=== PATIENT | female | born 1990 | race Two or more races ===

== ENCOUNTER 2024-05-08 14:19 | Emergency (ER) | payer MEDICAID, SELFPAY ==
[2024-05-08 14:58] VITALS: BP 135/85; PULSE 93; RESP 19; TEMP 37.5; O2SAT 97; BMI 36.8
--- NOTE | 2024-05-08 15:04 | XR_ITS ---
Examination: Pelvic ultrasound, transabdominal, complete Technique: Transabdominal ultrasound of the pelvis performed using grayscale imaging Date and time of exam: May 08, 2024 1542 hrs. Indications: Pelvic pain and vaginal bleeding beginning 6 days ago Findings: Uterus 7.9 cm endometrial stripe 1.0 cm No uterine mass or intrauterine gestation Right ovary 6.1 cm arterial flow 34 mm cyst Left ovary 3.9 cm arterial flow Impression: No uterine mass or intrauterine gestation Right ovarian simple cyst 3.3 x 3.4 x 3.2 cm
--- NOTE | 2024-05-08 15:05 | PD.EDRME ---
Rapid Medical Screening Exam RME Arrival date/time: 05/08/24 14:19 This is a 34-year-old female presents to the emergency department with complaints of intermittent vaginal bleeding worsening 1 week. She does report she is on Eliquis. I have greeted and performed a focused initial assessment of this patient. Initial appropriate labs ordered at this time. A comprehensive ED assessment and evaluation of the patient and analysis of all test and completion of medical decision making process will be conducted by additional ED provider. Chief Complaint: Urogenital-Female Time Seen by Provider: 05/08/24 14:33 Vital signs: Vital Signs Temperature 99.5 F 05/08/24 14:58 Pulse Rate 93 05/08/24 14:58 Respiratory Rate 19 05/08/24 14:58 Blood Pressure 135/85 H 05/08/24 14:58 Pulse Oximetry (%) 97 05/08/24 14:58 Oxygen Delivery Method Room Air 05/08/24 14:58
[2024-05-08 15:54] LABS: Basophils % (Auto) 0 % (0-2.5); Eosinophils % (Auto) 1 % (0-10); Hematocrit 42.2 % (36.0-46.0); Immature Granulocytes % (Auto) 0 % (0-0); Immature Granulocytes Auto 0.02 Thou/mm3 (0.00-0.00); Lymphocytes # (Auto) 1.8 Thou/mm3 (1.0-4.8); Lymphocytes % (Auto) 28 % (10-50); Mean Corpuscular HGB Conc 33.2 g/dl (31.0-37.0); Mean Corpuscular Hemoglobin 27.5 pg (25.0-35.0); Mean Corpuscular Volume 83 fL (80-100); Monocytes # (Auto) 0.6 Thou/mm3 (0.0-0.8); Monocytes % (Auto) 8 % (0-12); Neutrophils # (Auto) 4.1 Thou/mm3 (1.8-7.7); Neutrophils % (Auto) 63 % (37-80); Nucleated Red Blood Cell % 0 /100 WBC (0); Platelet Count 273 Thou/mm3 (140-440); RDW Standard Deviation 41.4 fL (36.4-46.3); White Blood Count 6.5 Thou/mm3 (3.6-11.0)
[2024-05-08 16:10] LABS: Prothrombin Time 10.9 Seconds (9.0-12.2)
[2024-05-08 16:12] LABS: Alanine Aminotransferase 12 U/L (10-49); Albumin, Serum 4.6 gm/dL (3.5-5.0); Albumin/Globulin Ratio 1.6 (1.2-2.2); Alkaline Phosphatase 42 U/L (46-116); Anion Gap 8 (7-16); Aspartate Amino Transferase 12 U/L (0-34); BUN/Creatinine Ratio 14 Ratio (12-20); Bilirubin,Total 0.5 mg/dL (0.3-1.2); Blood Urea Nitrogen 10 mg/dL (9-23); Calcium 9.5 mg/dL (8.3-10.6); Calcium (Corrected) 9.5 mg/dL (8.5-10.1); Carbon Dioxide 26.7 mMol/L (20.0-31.0); Chloride 108 mMol/L (98-107); Creatinine (Component) 0.7 mg/dL (0.6-1.3); Estimated Creatinine Clearance 138.9 mL/min (>60); Globulin 2.8 gm/dL (2.3-3.5); Glucose 92 mg/dL (74-106); Osmolality,Calculated 283 (275-295); Potassium 4.2 mMol/L (3.4-5.1); Sodium 143 mMol/L (136-145); Total Protein 7.4 gm/dL (5.7-8.2); eGFR > 60 See Note
[2024-05-08 16:21] LABS: HCG Qualitative,Urine Negative
--- NOTE | 2024-05-08 16:53 | PRELIM_ITS ---
Pelvic ultrasound (transabdominal). May 08, 2024 at 1542 hours Clinical history: Vaginal bleeding, abnormal. LMP 04/24/2024. Technique: Real-time, grayscale, transabdominal pelvic ultrasound was performed using Duplex scanning including arterial inflow, venous outflow, color and spectral Doppler. Comparison: No prior study is available for comparison. Findings: The uterus measures 7.9 x 4 x 5.1 cm. The endometrium measures 1 cm. The right ovary measures 6.1 x 3.6 x 3.1 cm and demonstrates a 3.3 x 3.4 x 3.2 cm simple cyst. The left ovary measures 3.9 x 1.5 x 1.8 cm and is unremarkable. Both ovaries demonstrate color flow and spectral waveforms on Doppler evaluation. There is no adnexal mass. There is no free fluid on the submitted images. Impression: No sonographic evidence of ovarian torsion is demonstrated on the submitted images. Simple right ovarian cyst. Recommend follow-up. Report Electronically Signed By: Zev Coates 05/08/2024 4:53:22 PM [EST]
--- NOTE | 2024-05-08 17:21 | PD.EDADULT ---
ED General RME/HPI General Chief complaint: Urogenital-Female Stated complaint: vaginal/rectal bleeding x 6d, on eliquis Time Seen by Provider: 05/08/24 14:33 Arrival date/time: 05/08/24 14:19 RME / HPI RME / HPI narrative: 34-year-old female presents to the emergency department with complaints of intermittent vaginal bleeding worsening 1 week. Associated with rectal bleeding also especially with wiping. Patient denies any dizziness. Denies any abdominal pain denies any vomiting denies any other complaints. She does report she is on Eliquis 5 mg twice daily for pulmonary embolism. She has been taking it for at least 2 years now.. Related Data Home Medications ?Medication ?Instructions ?Recorded ?Confirmed bromocriptine 2.5 mg tablet 2.5 mg PO BID 11/21/21 01/01/23 levothyroxine 25 mcg tablet 50 mcg PO QDAY 11/21/21 01/01/23 aspirin 81 mg chewable tablet 81 mg PO QDAY 01/01/23 01/01/23 Previous Rx's ?Medication ?Instructions ?Recorded apixaban 5 mg tablet (Eliquis) 5 mg PO BID #90 tabs 01/02/23 Allergies Allergy/AdvReac Type Severity Reaction Status Date / Time amoxicillin Allergy Intermediate BLOOD IN Verified 05/08/24 14:23 URINE Review of Systems Review of Systems Narrative Review of Systems: Review of system reviewed and within normal limits except mentioned in HPI ED Exam Narrative Physical exam: VITAL SIGNS: Reviewed. GENERAL APPEARANCE: Alert and interactive, follows commands, no acute distress, HEAD AND FACE: Non-traumatic. ENT: PERRL, pink conjunctivitis, eyelid no trauma, Mucous membrane moist. NECK: Supple, nontender, no nuchal rigidity. CHEST: No tenderness, no crepitus, no paradoxical movement, no retractions. LUNGS: Clear, well ventilated, symmetric, no rales, no wheezing, no ronchi, no stridor, good breath sounds bilaterally. HEART: Regular rate, regular rhythm, no murmur, no gallops. ABDOMEN: Soft, positive bowel sounds, nondistended, no guarding, nontender, no rebound, no masses, RECTAL: Deferred. GENITAL: Deferred. NEUROLOGICAL: Gross motor function intact sensory function intact, Appropriate for age. MUSCULOSKELETAL: low back nontender, full range of motion. EXTREMITIES: Nontender, full range of motion. SKIN: Color pink, dry, no rash, no lacerations, no abrasions, no contusions. LYMPHATICS: Deferred. Course Quality Measures none Orders Category Date Time Status US pelvic complete Stat Exams 05/08/24 15:04 Completed CBC Stat Lab 05/08/24 15:28 Completed Comprehensive Metabolic Panel Stat Lab 05/08/24 15:28 Completed HCG Qualitative,Urine Stat Lab 05/08/24 15:59 Completed PT [Prothrombin Time with INR] Stat Lab 05/08/24 15:28 Completed Vital Signs Vital signs: Vital Signs Temperature 99.5 F 05/08/24 14:58 Pulse Rate 93 05/08/24 14:58 Respiratory Rate 19 05/08/24 14:58 Blood Pressure 135/85 H 05/08/24 14:58 Pulse Oximetry (%) 97 05/08/24 14:58 Oxygen Delivery Method Room Air 05/08/24 14:58 MDM Patient data External records reviewed:: None Clinical information provided by:: patient Social determinants that could affect healthcare access:: none Patient has the following chronic illnesses:: None How is presenting disease/condition affected by chronic disease/condition?: no chronic disease Evaluation data The following diagnostics were reviewed and interpreted by me:: lab results and radiology exam(s) Lab and/or radiology exams considered but not ordered:: None Interpretation Summary: See results MDM Medications Medications considered but not ordered:: None Medication administrations:: None Consultations Consultation(s) initiated? (list below): No Diagnosis Differential Diagnosis ED Complaint MDM: Bright red blood per rectum, dysfunctional uterine bleeding, history of DVT Most likely diagnosis given after review of the tests above:: Bright red blood per rectum, vaginal bleeding, Admission Indicated Admission indicated?: not indicated Explain why admission is indicated or not indicated:: Stable Admission Request Was there a request for admission?: No Disposition Plan Disposition Plan: Discharge Discharge Attestation Discharge Attestation: The patient was given an opportunity to ask questions and understood the discharge instructions. Discharge instructions specifically effects, indications for sooner follow up or return to the emergency department, and the expected course of current diagnosis. Patient condition: Stable Medical Decision Making MDM Narrative MDM Narrative: 34-year-old female presents to the emergency department with complaints of intermittent vaginal bleeding worsening 1 week. Associated with rectal bleeding also especially with wiping. Patient denies any dizziness. Denies any abdominal pain denies any vomiting denies any other complaints. She does report she is on Eliquis 5 mg twice daily for pulmonary embolism. She has been taking it for at least 2 years now.. Patient's workup today all came back unremarkable there is no sign of an anemia. Patient's hemoglobin was noted to be 14 hematocrit of 42.2 PT/INR is normal CMP unremarkable. Patient's results discussed with her. Including her ultrasound of the pelvis which showed ovarian cyst otherwise unremarkable. Patient was also given a copy of her pelvic ultrasound. Patient was advised to closely follow-up with CERTIFIED HISTOLOGIC TECHNICIAN to monitor ovarian cyst. Was also advised to follow-up with GI specialist regarding lower GI bleed. Was also advised to talk to her PCP regarding her Eliquis intake. Patient agrees with plan Differential Diagnosis Differential Diagnosis: Bright red blood per rectum, dysfunctional uterine bleeding, history of DVT Lab Data 05/08/24 15:28 05/08/24 15:28 Labs: Lab Results 05/08/24 05/08/24 Range/Units 15:28 15:59 WBC 6.5 (3.6-11.0) Thou/mm3 RBC 5.10 (4.00-5.20) Miln/mm3 Hgb 14.0 (12.0-16.0) g/dL Hct 42.2 (36.0-46.0) % MCV 83 (80-100) fL MCH 27.5 (25.0-35.0) pg MCHC 33.2 (31.0-37.0) g/dl RDW Std Deviation 41.4 (36.4-46.3) fL Plt Count 273 (140-440) Thou/mm3 Neut % (Auto) 63 (37-80) % Lymph % (Auto) 28 (10-50) % [place] % (Auto) 8 (0-12) % Eos % (Auto) 1 (0-10) % Baso % (Auto) 0 (0-2.5) % Neut # (Auto) 4.1 (1.8-7.7) Thou/mm3 Lymph # (Auto) 1.8 (1.0-4.8) Thou/mm3 [place] # (Auto) 0.6 (0.0-0.8) Thou/mm3 Eos # (Auto) 0.0 (0.0-0.5) Thou/mm3 Baso # (Auto) 0.0 (0.0-0.2) Thou/mm3 Immature Gran # (Auto) 0.02 H (0.00-0.00) Thou/mm3 Absolute Nucleated RBC 0.00 (0.00-0.00) Thou/mm3 Immature Gran % 0 (0-0) % Nucleated RBC % 0 (0) /100 WBC PT 10.9 (9.0-12.2) Seconds INR 1.0 (0.9-1.3) Sodium 143 (136-145) mMol/L Potassium 4.2 (3.4-5.1) mMol/L Chloride 108 H (98-107) mMol/L Carbon Dioxide 26.7 (20.0-31.0) mMol/L Anion Gap 8 (7-16) BUN 10 (9-23) mg/dL Creatinine 0.7 (0.6-1.3) mg/dL Estim Creat Clear Calc 138.9 (>60) mL/min eGFR > 60 (60 - ) See Note BUN/Creatinine Ratio 14 (12-20) Ratio Glucose 92 (74-106) mg/dL Calculated Osmolality 283 (275-295) Calcium 9.5 (8.3-10.6) mg/dL Corrected Calcium 9.5 (8.5-10.1) mg/dL Total Bilirubin 0.5 (0.3-1.2) mg/dL AST 12 (0-34) U/L ALT 12 (10-49) U/L Alkaline Phosphatase 42 L (46-116) U/L Total Protein 7.4 (5.7-8.2) gm/dL Albumin 4.6 (3.5-5.0) gm/dL Globulin 2.8 (2.3-3.5) gm/dL Albumin/Globulin Ratio 1.6 (1.2-2.2) Urine HCG, Qual Negative Discharge Plan Plan Patient Disposition: HOME (Self Care) Disposition Comment: Stable Prescriptions/Referrals Prescriptions/Med Rec: No Action levothyroxine 25 mcg Tablet 50 mcg PO QDAY bromocriptine 2.5 mg Tablet 2.5 mg PO BID Rx Instructions: must administer with a meal/food aspirin 81 mg Tablet,Chewable 81 mg PO QDAY Eliquis 5 mg tablet 5 mg PO BID Qty: 90 0RF Rx Instructions: Take 2 pills (10mg) twice a day for 6 days, then take one pill (5mg) twice a day. Referrals: Nik PERLA)Mali FNP [Primary Care Provider] - In 1 week Problem List Clinical Impression: BRBPR (bright red blood per rectum), Vaginal bleeding Patient/Caregiver Discharge Instructions Discharge Activity: activity as tolerated Education Materials: Understanding Rectal Bleeding Additional Instructions: Thank you for the opportunity for serving you today. You are stable for discharged . You are advised to: Follow-up with your PCP in 1 to 2 days regarding your Eliquis intake. Return to ED for worsening of symptoms Increase oral fluids As your PCP to refer you to a GI specialist to rule out the source of your lower GI bleed as outpatient Print Language: Frisian Stand Alone Forms: Julia Award Info., Patient Portal Info Letter
== END 2024-05-08 17:36 | disposition home or self-care (01) ==
PROVIDERS: Nurse Practitioner Primary Care; Emergency Provider Emergency Medicine; PCP Nurse Practitioner Primary Care
DX: N93.9 Abnormal uterine and vaginal bleeding, unspecified (principal); K62.5 Hemorrhage of anus and rectum
CPT/HCPCS: 36415; 76856; 80053; 81025; 85025; 85610; 99284

== ENCOUNTER 2024-05-13 14:04 | Outpatient (RCR) | payer MEDICAID, SELFPAY ==
--- NOTE | 2024-05-16 23:28 | CTCFLWUP_ITS ---
Patient: TIERNEY TRACY : 1990 Page 2 of 2 FOLLOW UP NOTE DATE OF SERVICE: 05/13/2024 NAME: TIERNEY TRACY ACCOUNT: [id number] : 1990 AGE: 34 INTERVAL HISTORY: Patient has been having heavy. 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 She is on weight loss medication and have lost 30 pounds. She has problem with her fallopian tubes and cannot conceive. She has also failed IVF procedure. Today her main concern is that how she can get her hysterectomy or DandC done while on anticoagulation. ONCOLOGY HISTORY: DIAGNOSIS: Provoked left lower extremity DVT followed by bilateral pulmonary emboli 2 days after uterine polypectomy (12/30/2022). Currently on indefinite anticoagulation with apixaban. Provoked left lower extremity DVT and pulmonary embolism(11/20/2021) following laparoscopic abdominal surgery for endometriosis (11/13/2021). S/p 6 months of anticoagulation with apixaban. 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 Hypothyroidism Hyperprolactinemia REASON FOR TODAY?S VISIT: This is office follow-up visit. Ms. Tracy is here at [facility]. Her back surgery is canceled. Currently she is undergoing physical therapy. She is also planned to have injections into the SI joint by the pain management in near future. Ms. Tracy continues to have pain in the lower back. She denies any cough, shortness of breath, chest pain. She is currently on indefinite anticoagulation with apixaban. TREATMENT HISTORY: Care?Plan Start?Date Cycle Day Intent HISTORY OF PRESENT ILLNESS: Tierney Tracy is a 34-year-old ENG speaking female with history of obesity, high poor thyroidism and hyperprolactinemia as well as failed multiple IVF transfers, endometriosis has the following history. 11/13/2021: Patient had laparoscopic abdominal surgery done by Dr. Bryan Butts of [place] 11/20/2021: Ms. Tracy was having left lower extremity pain as well as shortness of breath. She was diagnosed with left lower extremity DVT as well as pulmonary embolism. Ms. Tracy was started on Eliquis. She continues to be on Eliquis at this time. 11/20/2021: Left lower extremity duplex scan 11/20/2021: CT angiogram of the chest with IV contrast? 12/30/2022: Ms. Tracy had uterine polypectomy done. 01/01/2023: Doppler ultrasound study showed left lower extremity DVT 01/01/2023: Chest CTA? 01/01/2023: Ms. Tracy is started on apixaban. 06/10/2023: Left lower extremity duplex scan done. It is negative for DVT. 06/25/2023: CT angiogram of the chest with IV contrast OTHER MEDICAL HISTORY/CONDITIONS: PE Hypothyroid Anemia Uterine poly[p removal - 2014; 2017; 2019 Removal endometriosis/ polps/ scar tissue - 11/13/21 FAMILY HISTORY: Patient?denies?family?cancer?history. SOCIAL HISTORY: Occupational?History:?Unemployed Education?Level:?College Graduate, 4 year degree Marital?Status:?Single Tobacco?Use:?Denies ETOH?Use:?Denies Drug?Note:?Denies Social?History?Note:?Lives?with?partner [employer] TRIMMER HISTORY: Menarche?-?Age:?12 Date?LMP:?12/20/2021 :?1 Live?Births:?0 Age?1st?:?30 Gynecological?Note:?Going?through?IVF MEDICATIONS: 1. Butrans - 5 mcg/hour 1 Patch Weekly 2. cyclobenzaprine - 5 mg 1 tab Daily 3. Eliquis - 5 mg 1 tab Twice a Day 4. fluticasone prp-sod.chl,bicarb - 50 mcg- 0.9 % 1 As directed 5. levothyroxine - 25 mcg 1 tab Daily 6. levothyroxine - 50 mcg 1 tab Daily 7. traMADol - 50 mg 1 tab Daily 8. TylenoL - 500 mg 1 tab Three times a day 9. Wegovy - Weekly Medications Last Reconciled by Xochitl Baron MA on 05/13/2024 ALLERGIES: amoxicillin REVIEW OF SYSTEMS: A complete 14-point review of systems was performed and is negative except as noted in interval history. PHYSICAL EXAMINATION: VITAL SIGNS: PAIN: 2 - Mild pain ECOG Performance Status: 0 - Asymptomatic and fully active GENERAL APPEARANCE: Appears well, in no apparent distress, appropriately interactive. HEENT: Normocephalic, no temporal wasting, normal conjunctiva, no scleral icterus, normal hearing, lips without lesions, neck normal range of motion. CARDIOVASCULAR: Not assessed. PULMONARY: Normal respiratory effort, no respiratory distress or use of accessory muscles, speaking in full sentences, no tachypnea. EXTREMITIES: No pedal edema or cyanosis. SKIN: Normal skin appearance. NEUROLOGIC: Alert and oriented x4. PSHYCHIATRIC: Appropriate affect, mood normal, behavior normal, intact thought and speech. LABORATORY DATA: I have personally reviewed and interpreted each of the patient?s relevant lab tests, abnormal findings are below: Date 05/08/24 ??WHITE?BLOOD?COUNT?(Thou/mm3) 6.5 ??RED?BLOOD?COUNT?(Miln/mm3) 5.10 ??HEMOGLOBIN?(gm/dl) 14.0 ??HEMATOCRIT?(%) 42.2 ??PLATELET?COUNT?(Thou/mm3) 273 ??NEUTROPHILS?%,?AUTO?(%) 63 ??LYMPH?%,?AUTO?(%) 28 ??NEUTROPHILS,?AUTO?(Thou/mm3) 4.1 ??GLUCOSE,RANDOM?(mg/dL) 92 ??BLOOD?UREA?NITROGEN?(mg/dL) 10 ??CREATININE?(mg/dL) 0.70 ??SODIUM?(mmol/L) 143 ??POTASSIUM?(mmol/L) 4.2 ??CHLORIDE?(mmol/L) 108?H ??CrCl?(CandG)?(ml/min) 143.99 ??AST/SGOT?(Unit/L) 12 ??ALT/SGPT?(Unit/L) 12 ??ALKALINE?PHOSPHATASE?(Unit/L) 42?L ??BILIRUBIN,?TOTAL?(mg/dL) 0.5 ??PROTEIN?TOTAL?(gm/dl) 7.4 ??ALBUMIN,?SERUM?(gm/dl) 4.6 ??GLOBULIN?(gm/dl) 2.8 ??ALBUMIN/GLOBULIN?RATIO 1.6 ??CALCIUM,?SERUM?(mg/dL) 9.5 ??CALCIUM?SERUM?(CORRECTED)?(mg/dL) 9.5 ASSESSMENT/PLAN: 1. Back surgery is canceled. Currently she is undergoing physical therapy and being managed by pain management in [place]. She is scheduled to have some kind of injections into SI joint for pain control in near future.. 2. CT angiogram of the chest as well as Doppler ultrasound of the lower extremities is negative for DVT.. 3. Provoked left lower extremity DVT followed by bilateral pulmonary emboli 2 days after uterine polypectomy (12/30/2022). Currently on anticoagulation with apixaban. 4. Provoked left lower extremity DVT and pulmonary embolism(11/20/2021) following laparoscopic abdominal surgery for endometriosis (11/13/2021). S/p 6 months of anticoagulation with apixaban. 5. History of failed IVF transfer x3 (November 02, 2020, March 06, 2021, July 2021) 6. Obesity. 7. Hypothyroidism 8. Hyperprolactinemia I will check patient's for any persistent clot I will check D-dimers If patient have no clot that means that Eliquis is working We have option to bridge patient to Lovenox before the procedure Also we can decrease the dose of Eliquis to 2.5 and continue to use this prophylactically ORDERS: Order # Description [id number] Comprehensive Metabolic Panel - 12 + CBC with Auto Diff + [id number] CA [id number] + CEA [id number] RETURN TO CLINIC: 2 weeks BILLING AND COMPLIANCE: I reviewed external records from providers outside my specialty as summarized above. I spent a total of 50 minutes on this patient?s care on the day of their visit excluding time spent related to any billed procedures. This time includes time spent with the patient as well as time spent documenting in the medical record, reviewing patients records and tests, obtaining history, placing orders, communicating with other healthcare professionals, counseling the patient, family or caregiver, and/or care coordination for the diagnoses above. Electronically Signed by: Hemant Fontenot MD T: 11:25 PM CC: [place]? PCP: Hemant Fontenot Referring: Hemant Fontenot This document was completed utilizing speech recognition software. Grammatical errors, random word insertions, pronoun errors, and incomplete sentences are an occasional consequence of this system due to software limitations, ambient noise, and hardware issues. Any formal questions or concerns about the content, text or information contained within the body of this dictation should be directly addressed to the provider for clarification.
== END 2024-05-17 23:59 | disposition home or self-care (01) ==
LOC: SCTC 14:04
PROVIDERS: PCP Nurse Practitioner Primary Care; Referring Provider Internal Medicine Hematology & Oncology; Visit Provider Internal Medicine Hematology & Oncology
DX: Z09 Encounter for follow-up examination after completed treatment for conditions other than malignant neoplasm (principal); Z86.718 Personal history of other venous thrombosis and embolism; Z79.01 Long term (current) use of anticoagulants; E66.9 Obesity, unspecified; Z68.37 Body mass index [BMI] 37.0-37.9, adult; E03.9 Hypothyroidism, unspecified; E22.1 Hyperprolactinemia
CPT/HCPCS: 99212; G0463

== ENCOUNTER 2024-05-26 16:08 | Outpatient (RCR) | payer MEDICAID, SELFPAY ==
--- NOTE | 2024-05-27 00:19 | CTCFLWUP_ITS ---
Patient: TIERNEY TRACY : 1990 Page 5 of 6 FOLLOW UP NOTE DATE OF SERVICE: 05/26/2024 NAME: TIERNEY TRACY ACCOUNT: [id number] : 1990 AGE: 34 Telephone visit INTERVAL HISTORY: Tierney Tracy presents for follow-up of ongoing medical concerns, including elevated prolactin levels and associated milk production. She is currently taking Wegovy (semaglutide) for weight loss. The patient's primary concern is the elevated prolactin levels, which are causing milk production. This symptom's onset-years , and is stable.. No aggravating or alleviating factors are mentioned. Tierney was recently referred to an hob mill operator but has not yet seen one. She is advised to contact her insurance to find an hob mill operator, possibly in [place], and consider telehealth options. Medical History - Emergency room visit - Elevated prolactin levels Medications and Supplements - Wegovy (semaglutide) Review of Systems Endocrine: Positive for galactorrhea (milk production). ONCOLOGY HISTORY: DIAGNOSIS: Provoked left lower extremity DVT followed by bilateral pulmonary emboli 2 days after uterine polypectomy (12/30/2022). Currently on indefinite anticoagulation with apixaban. Provoked left lower extremity DVT and pulmonary embolism(11/20/2021) following laparoscopic abdominal surgery for endometriosis (11/13/2021). S/p 6 months of anticoagulation with apixaban. 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 Hypothyroidism Hyperprolactinemia REASON FOR TODAY?S VISIT: This is office follow-up visit. Ms. Tracy is here at [facility]. Her back surgery is canceled. Currently she is undergoing physical therapy. She is also planned to have injections into the SI joint by the pain management in near future. Ms. Tracy continues to have pain in the lower back. She denies any cough, shortness of breath, chest pain. She is currently on indefinite anticoagulation with apixaban. TREATMENT HISTORY: Care?Plan Start?Date Cycle Day Intent HISTORY OF PRESENT ILLNESS: Tierney Tracy is a 34-year-old ENG speaking female with history of obesity, high poor thyroidism and hyperprolactinemia as well as failed multiple IVF transfers, endometriosis has the following history. 11/13/2021: Patient had laparoscopic abdominal surgery done by Dr. Bryan Butts of [place] 11/20/2021: Ms. Tracy was having left lower extremity pain as well as shortness of breath. She was diagnosed with left lower extremity DVT as well as pulmonary embolism. Ms. Tracy was started on Eliquis. She continues to be on Eliquis at this time. 11/20/2021: Left lower extremity duplex scan 11/20/2021: CT angiogram of the chest with IV contrast? 12/30/2022: Ms. Tracy had uterine polypectomy done. 01/01/2023: Doppler ultrasound study showed left lower extremity DVT 01/01/2023: Chest CTA? 01/01/2023: Ms. Tracy is started on apixaban. 06/10/2023: Left lower extremity duplex scan done. It is negative for DVT. 06/25/2023: CT angiogram of the chest with IV contrast OTHER MEDICAL HISTORY/CONDITIONS: PE Hypothyroid Anemia Uterine poly[p removal - 2014; 2017; 2019 Removal endometriosis/ polps/ scar tissue - 11/13/21 FAMILY HISTORY: Patient?denies?family?cancer?history. SOCIAL HISTORY: Occupational?History:?Unemployed Education?Level:?College Graduate, 4 year degree Marital?Status:?Single Tobacco?Use:?Denies ETOH?Use:?Denies Drug?Note:?Denies Social?History?Note:?Lives?with?partner BRIM BUSTER HISTORY: Menarche?-?Age:?12 Date?LMP:?12/20/2021 :?1 Live?Births:?0 Age?1st?:?30 Gynecological?Note:?Going?through?IVF MEDICATIONS: 1. Butrans - 5 mcg/hour 1 Patch Weekly 2. Eliquis - 5 mg 1 tab Twice a Day 3. fluticasone prp-sod.chl,bicarb - 50 mcg- 0.9 % 1 As directed 4. levothyroxine - 25 mcg 1 tab Daily 5. levothyroxine - 50 mcg 1 tab Daily 6. metaxalone - 800 mg 1 tab As directed 7. traMADol - 50 mg 1 tab Daily 8. TylenoL - 500 mg 1 tab Three times a day 9. Wegovy - Weekly Medications Last Reconciled by Xochitl Baron MA on 05/26/2024 ALLERGIES: amoxicillin LABORATORY DATA: I have personally reviewed and interpreted each of the patient?s relevant lab tests, abnormal findings are below: Date 05/08/24 ??WHITE?BLOOD?COUNT?(Thou/mm3) 6.5 ??RED?BLOOD?COUNT?(Miln/mm3) 5.10 ??HEMOGLOBIN?(gm/dl) 14.0 ??HEMATOCRIT?(%) 42.2 ??PLATELET?COUNT?(Thou/mm3) 273 ??NEUTROPHILS?%,?AUTO?(%) 63 ??LYMPH?%,?AUTO?(%) 28 ??NEUTROPHILS,?AUTO?(Thou/mm3) 4.1 ??GLUCOSE,RANDOM?(mg/dL) 92 ??BLOOD?UREA?NITROGEN?(mg/dL) 10 ??CREATININE?(mg/dL) 0.70 ??SODIUM?(mmol/L) 143 ??POTASSIUM?(mmol/L) 4.2 ??CHLORIDE?(mmol/L) 108?H ??CrCl?(CandG)?(ml/min) 143.99 ??AST/SGOT?(Unit/L) 12 ??ALT/SGPT?(Unit/L) 12 ??ALKALINE?PHOSPHATASE?(Unit/L) 42?L ??BILIRUBIN,?TOTAL?(mg/dL) 0.5 ??PROTEIN?TOTAL?(gm/dl) 7.4 ??ALBUMIN,?SERUM?(gm/dl) 4.6 ??GLOBULIN?(gm/dl) 2.8 ??ALBUMIN/GLOBULIN?RATIO 1.6 ??CALCIUM,?SERUM?(mg/dL) 9.5 ??CALCIUM?SERUM?(CORRECTED)?(mg/dL) 9.5 ASSESSMENT/PLAN: 1. Tierney Tracy presents with elevated prolactin levels and milk production, requiring further evaluation for a possible pituitary tumor. 2. Hyperprolactinemia with galactorrhea 3. Assessment: Patient has elevated prolactin levels, which is likely causing the reported milk production (galactorrhea). This presentation necessitates further investigation for a possible pituitary tumor. Recent lab work from May 08, 2024, showed normal hemoglobin (13.7), normal glucose, slightly elevated BUN-creatinine, and mildly elevated alkaline phosphatase (43). A CT scan in June ruled out pulmonary artery emboli, and Factor V Leiden testing was negative. Tumor markers were also negative. 4. Plan: - Order brain MRI to evaluate for pituitary tumor - Order D-dimer test - Refer to hob mill operator for further evaluation and management - Patient to contact insurance for hob mill operator options, possibly in [place] - Consider telehealth options for endocrinology consultation - Continue Wegovy (semaglutide) as prescribed - Follow-up: - Telephone visit in 4 weeks for test results - In-person follow-up in 3 months, or earlier if MRI shows significant findings - Patient instructed to report any changes in symptomsCT angiogram of the chest as well as Doppler ultrasound of the lower extremities is negative for DVT.. 5. Provoked left lower extremity DVT followed by bilateral pulmonary emboli 2 days after uterine polypectomy (12/30/2022). Currently on anticoagulation with apixaban. 6. Provoked left lower extremity DVT and pulmonary embolism(11/20/2021) following laparoscopic abdominal surgery for endometriosis (11/13/2021). S/p 6 months of anticoagulation with apixaban. 7. History of failed IVF transfer x3 (November 02, 2020, March 06, 2021, July 2021) 8. Obesity. 9. Hypothyroidism 10. Hyperprolactinemia I will check D-dimers If patient have no clot that means that Eliquis is working We have option to bridge patient to Lovenox before the procedure Also we can decrease the dose of Eliquis to 2.5 and continue to use this prophylactically ORDERS: Order # Description [id number] Comprehensive Metabolic Panel - 12 + CBC with Auto Diff + + MD Follow Up 3 Months [id number] MRI + Brain + With W/O Contrast [id number] MD Follow Up 4 Week RETURN TO CLINIC: Dear Tierney tracy , Thank you for visiting today. Here is a summary of the reynolds instructions: Medications: - Continue taking Wegovy (semaglutide) as prescribed Tests: - Complete D-dimer blood test - Get a brain MRI to check for a possible pituitary tumor Referrals: - Contact your insurance to find an hob mill operator, possibly in [place] - Consider telehealth options for endocrinology appointment Follow-up: - Telephone visit in 4 weeks to review test results - In-person follow-up appointment in 3 months - Schedule an earlier appointment if the MRI shows anything concerning Other Instructions: - Let us know if you notice any changes in your condition Please reach out if you have any questions or concerns. Best Regards, janet kirkland, Oncology BILLING AND COMPLIANCE: I reviewed external records from providers outside my specialty as summarized above. I spent a total of 50 minutes on this patient?s care on the day of their visit excluding time spent related to any billed procedures. This time includes time spent with the patient as well as time spent documenting in the medical record, reviewing patients records and tests, obtaining history, placing orders, communicating with other healthcare professionals, counseling the patient, family or caregiver, and/or care coordination for the diagnoses above. Electronically Signed by: Janet Kirkland MD T: 12:17 AM CC: YAN Pruitt PCP: Mali Zaragoza Referring: Mali Zaragoza This document was completed utilizing speech recognition software. Grammatical errors, random word insertions, pronoun errors, and incomplete sentences are an occasional consequence of this system due to software limitations, ambient noise, and hardware issues. Any formal questions or concerns about the content, text or information contained within the body of this dictation should be directly addressed to the provider for clarification.
== END 2024-06-16 23:59 | disposition home or self-care (01) ==
LOC: SCTC 16:08
PROVIDERS: PCP Nurse Practitioner Primary Care; Referring Provider Nurse Practitioner Primary Care; Visit Provider Internal Medicine Hematology & Oncology
DX: E22.1 Hyperprolactinemia (principal); R74.8 Abnormal levels of other serum enzymes; R94.4 Abnormal results of kidney function studies; Z86.718 Personal history of other venous thrombosis and embolism; Z79.01 Long term (current) use of anticoagulants; Z86.711 Personal history of pulmonary embolism; E66.9 Obesity, unspecified; E03.9 Hypothyroidism, unspecified
CPT/HCPCS: 99212; G0463

== ENCOUNTER → 2024-07-05 | Outpatient (CLI) | payer MEDICAID, SELFPAY ==
--- NOTE | 2024-07-05 15:45 | XR_ITS ---
Examination: MRI of brain without intravenous contrast. MRI brain with intravenous contrast. Date and time of exam:July 05, 2024 at 1659 hours Comparison May 17, 2022 INDICATIONS: Headaches and dizziness in the extremities 8 years, elevated prolactin levels on laboratory examination one month ago Technique: Multiple axial and sagittal images of the brain to been obtained. Siemens high-resolution 1.52 Johana short bore scanner utilized. Sagittal sections, T1 weighted images, TR 500, TE 14, are performed. Axial sections proton-density and T2-weighted images have been obtained. Inversion recovery axial images, TR 9260, TE 111, TR 2500. Diffusion weighted images, axial sections, TR 4800, TE 128, B value 1000. Axial sections, ADC map, TR 4800, TE 128. Axial and coronal images were also obtained post 20 cc gadolinium administered intravenously. Findings:: Enlargement of the sella turcica is not present. The optic chiasm and infundibular stalk are not remarkable. There is no localized enlargement of the medulla or carlotta. Fourth ventricle and cerebellar tonsils appear normal in position. No subacute area of hemorrhage density is seen. Fourth ventricle is midline. Mass in the cerebellopontine angle region is not evident. 7th and 8th nerve complexes exhibit symmetry Globes are symmetrical Orbital musculature including medial lateral rectus muscles do not exhibit abnormality Increased white matter signal is not seen Effacement of the cortical sulcal markings is not identified. Mass effect upon the ventricular system is not identified. Diffusion-weighted images demonstrate no focus of restricted diffusion Contrast images demonstrate no abnormal enhancement Impression: Negative for acute hemorrhage mass effect or midline shift. No acute infarct No MR findings diagnostic for demyelinating disease No pituitary macro or microadenoma
== END | disposition home or self-care (01) ==
LOC: SMRI 15:32
PROVIDERS: PCP Nurse Practitioner Primary Care; Referring Provider Internal Medicine Hematology & Oncology; Visit Provider Internal Medicine Hematology & Oncology
DX: R51.9 Headache, unspecified (principal); R42 Dizziness and giddiness
CPT/HCPCS: 70553; A9579

== ENCOUNTER 2024-07-20 10:34 | Outpatient (RCR) | payer MEDICAID, SELFPAY | END 2024-08-16 23:59 | disposition home or self-care (01) | LOC: SCTC 10:34 | PROVIDERS: PCP Nurse Practitioner Primary Care; Referring Provider Nurse Practitioner Primary Care; Visit Provider Nurse Practitioner Family | DX: O09.891 Supervision of other high risk pregnancies, first trimester (principal); O99.281 Endocrine, nutritional and metabolic diseases complicating pregnancy, first trimester; E03.9 Hypothyroidism, unspecified; Z3A.01 Less than 8 weeks gestation of pregnancy; Z86.718 Personal history of other venous thrombosis and embolism; Z86.711 Personal history of pulmonary embolism; Z79.01 Long term (current) use of anticoagulants | CPT/HCPCS: 99212; G0463 ==

== ENCOUNTER 2024-09-14 09:03 | Outpatient (RCR) | payer MEDICAID, SELFPAY | END 2024-09-16 23:59 | disposition home or self-care (01) | LOC: SCTC 09:03 | PROVIDERS: PCP Nurse Practitioner Primary Care; Referring Provider Nurse Practitioner Primary Care; Visit Provider Nurse Practitioner Family | DX: Z09 Encounter for follow-up examination after completed treatment for conditions other than malignant neoplasm (principal); Z86.718 Personal history of other venous thrombosis and embolism; Z79.01 Long term (current) use of anticoagulants; E03.9 Hypothyroidism, unspecified | CPT/HCPCS: 99212; G0463 ==

== ENCOUNTER → 2024-10-04 | Outpatient (CLI) | payer MEDICAID, SELFPAY ==
--- NOTE | 2024-10-04 16:30 | XR_ITS ---
Examination: MRI lumbar spine without contrast Date and time of exam: October 04, 2024 1748 hours Comparison May 26, 2023 INDICATIONS: Low back pain 8 years increasing in severity radiating to both legs Technique: Multiple MRI axial and sagittal sections lumbar spine. Sagittal T2-weighted images, TR 3500, TE 118 T1 weighted transverse sections, TR 688 T8.5, T2-weighted sagittal sections T1 weighted sagittal sections TR 621, TE 30 T2 axial sections, TR 4, 190, TE 84. Findings: Adequate alignment lumbar vertebral bodies on the lateral view Moderate disc narrowing anteriorly L4-L5 Adequate marrow signal lumbar vertebral bodies No lumbar fracture L5-S1 7 mm partially extruded central disc L4-L5 extruded 14 mm disc severely indenting the thecal sac and displacing both L4 nerve roots L3-L4 3 mm central lumbar disc bulge L2-L3 no disc protrusion L1-L2 no disc protrusion IMPRESSION: L5-S1 7 mm partially extruded central disc L4-L5 14 mm extruded central disc is severely indenting the thecal sac and displacing both L4 nerve roots
== END | disposition home or self-care (01) ==
LOC: SMRI 16:39
PROVIDERS: PCP Nurse Practitioner Primary Care; Referring Provider Psychiatry & Neurology Neurology; Visit Provider Psychiatry & Neurology Neurology
DX: M51.26 Other intervertebral disc displacement, lumbar region (principal); M51.27 Other intervertebral disc displacement, lumbosacral region
CPT/HCPCS: 72148

== ENCOUNTER 2024-12-15 10:06 | Outpatient (RCR) | payer MEDICAID, SELFPAY | END 2024-12-17 23:59 | disposition home or self-care (01) | LOC: SCTC 10:06 | PROVIDERS: PCP Nurse Practitioner Primary Care; Referring Provider Nurse Practitioner Primary Care; Visit Provider Nurse Practitioner Family | DX: Z09 Encounter for follow-up examination after completed treatment for conditions other than malignant neoplasm (principal); Z86.718 Personal history of other venous thrombosis and embolism; Z79.01 Long term (current) use of anticoagulants; E03.9 Hypothyroidism, unspecified | CPT/HCPCS: 99212; G0463 ==